=== PATIENT | female | born 1960 | race Caucasian/White ===

== ENCOUNTER 2020-06-30 12:48 | Observation (INO) ==
[2020-06-30 13:30] LABS: ABS Basophils 0.1 10^3/ul (0-0.2); ABS Eosinophils 0.3 10^3/ul (0-0.6); ABS Lymphocytes 2.1 10^3/ul (1.0-4.8); ABS Monocytes 0.8 10^3/ul (0-0.8); ABS Neutrophils 6.1 10^3/ul (1.5-7.7); Eosinophil % 2.7 %; Hematocrit 44 % (35-47); Hemoglobin 14.7 g/dL (12.0-16.0); Lymphocyte % 22.4 %; Mean Corpuscular HGB Conc 34 g/dL (31-36); Mean Corpuscular Hemoglobin 30 pg (27-31); Mean Corpuscular Volume 88 fL (80-97); Mean Platelet Volume 9.4 fL (7.4-10.4); Platelet Count 177 10^3/uL (150-450); Red Blood Count 4.98 10^6 /uL (3.70-4.87); Red Cell Distribution Width 16 % (10-15); White Blood Count 9.4 10^3/uL (3.5-10.8)
[2020-06-30 13:50] LABS: Anion Gap 7 mmol/L (2-11); BUN/Creatinine Ratio 22.9 (8-20); Blood Urea Nitrogen 19 mg/dL (6-24); CO2 Carbon Dioxide 26 mmol/L (22-32); Calcium 9.6 mg/dL (8.6-10.3); Chloride 108 mmol/L (101-111); EGFR African American 85.1 (>60); EGFR Non-African American 70.4 (>60); Glucose 80 mg/dL (70-100); Potassium 3.8 mmol/L (3.5-5.0); Sodium 141 mmol/L (135-145)
[2020-06-30 13:57] LABS: Troponin I 0.03 ng/mL (<0.03)
[2020-06-30] MEDS ORDERED: Heparin DRIP 25,000 UNITS BAG 25,000 UNITS/500 ML BAG IV SCH (14:30)
[2020-06-30 15:05] LABS: INR 0.94 (0.82-1.09)
[2020-06-30] MEDS ORDERED: Dextrose 50% Syringe 50 ml 25 GM/50 ML SYRINGE IV PUSH PRN (15:22)
[2020-06-30] MEDS: Heparin 5000 UNITS/ML 1 mL VIAL IV SCH ×2 (15:27→22:56)
[2020-06-30 18:29] LABS: ABS Basophils 0.1 10^3/ul (0-0.2); ABS Eosinophils 0.3 10^3/ul (0-0.6); ABS Lymphocytes 3.1 10^3/ul (1.0-4.8); ABS Monocytes 0.9 10^3/ul (0-0.8); ABS Neutrophils 6.6 10^3/ul (1.5-7.7); Eosinophil % 2.9 %; Hematocrit 47 % (35-47); Hemoglobin 15.7 g/dL (12.0-16.0); Mean Corpuscular HGB Conc 34 g/dL (31-36); Mean Corpuscular Hemoglobin 30 pg (27-31); Mean Corpuscular Volume 89 fL (80-97); Mean Platelet Volume 9.1 fL (7.4-10.4); Platelet Count 182 10^3/uL (150-450); Red Blood Count 5.25 10^6 /uL (3.70-4.87); Red Cell Distribution Width 16 % (10-15); White Blood Count 10.9 10^3/uL (3.5-10.8)
[2020-06-30 20:03] LABS: Troponin I 0.03 ng/mL (<0.03)
[2020-06-30 20:12] LABS: EGFR African American 87.6 (>60); EGFR Non-African American 72.4 (>60)
[2020-06-30] MEDS: Insulin GLARGINE 100 un/ml 10 ml VIAL SUBCUT SCH (22:43)
[2020-07-01 05:44] LABS: Troponin I 0.03 ng/mL (<0.03)
[2020-07-01 08:42] LABS: ABS Basophils 0.1 10^3/ul (0-0.2); ABS Eosinophils 0.3 10^3/ul (0-0.6); ABS Lymphocytes 2.9 10^3/ul (1.0-4.8); ABS Monocytes 0.8 10^3/ul (0-0.8); ABS Neutrophils 4.1 10^3/ul (1.5-7.7); Eosinophil % 4.1 %; Hematocrit 41 % (35-47); Hemoglobin 13.6 g/dL (12.0-16.0); Lymphocyte % 35.3 %; Mean Corpuscular HGB Conc 33 g/dL (31-36); Mean Corpuscular Hemoglobin 30 pg (27-31); Mean Corpuscular Volume 90 fL (80-97); Mean Platelet Volume 10.2 fL (7.4-10.4); Nucleated Red Blood Cells % 0.2; Platelet Count 157 10^3/uL (150-450); Red Blood Count 4.58 10^6 /uL (3.70-4.87); Red Cell Distribution Width 16 % (10-15); White Blood Count 8.3 10^3/uL (3.5-10.8)
[2020-07-01 08:54] LABS: ALT 11 U/L (7-52); AST 13 U/L (13-39); Albumin 3.5 g/dL (3.2-5.2); Albumin/Globulin Ratio 1.2 (1-3); Alkaline Phosphatase 80 U/L (34-104); Anion Gap 9 mmol/L (2-11); BUN/Creatinine Ratio 28.2 (8-20); Blood Urea Nitrogen 22 mg/dL (6-24); CO2 Carbon Dioxide 22 mmol/L (22-32); Chloride 107 mmol/L (101-111); EGFR African American 91.5 (>60); EGFR Non-African American 75.6 (>60); Globulin 2.9 g/dL (2-4); Glucose 210 mg/dL (70-100); Potassium 3.9 mmol/L (3.5-5.0); Sodium 138 mmol/L (135-145); Total Protein 6.4 g/dL (6.4-8.9)
[2020-07-01] MEDS ORDERED: Insulin GLARGINE 100 un/ml 10 ml VIAL SUBCUT SCH (09:00)
[2020-07-01] MEDS: Aspirin EC 81 mg TAB.EC (enteric coated) PO SCH (11:14)
[2020-07-01 11:21] LABS: Cholesterol 228 mg/dL; HDL Cholesterol 26.2 mg/dL; Triglycerides 762 mg/dL
[2020-07-01 11:37] LABS: LDL Cholesterol Direct 128 mg/dL
[2020-07-01] MEDS ORDERED: Heparin 5000 UNITS/ML 1 mL VIAL ONE (12:06)
[2020-07-01] MEDS: Heparin 5000 UNITS/ML 1 mL VIAL IV SCH (12:10)
[2020-07-01 12:14] LABS: Amylase 36 U/L (29-103); Lipase 118 U/L (11.0-82.0)
[2020-07-01] MEDS ORDERED: Perflutren Lipid Microsphere 3 ML VIAL ONE (12:28)
[2020-07-01 13:43] LABS: Magnesium 2.2 mg/dL (1.9-2.7)
[2020-07-01] MEDS ORDERED: Nitroglycerin 0.4 mg/hr PATCH (10 mg) TRANSDERM SCH (20:00)
[2020-07-01] MEDS: Insulin GLARGINE 100 un/ml 10 ml VIAL SUBCUT SCH (21:03)
[2020-07-01] MEDS: CMC: Ranolazine 500 mg TAB (NF) PO SCH (21:03)
[2020-07-02] MEDS: Heparin 5000 UNITS/ML 1 mL VIAL IV SCH ×2 (02:02→10:09)
[2020-07-02 06:52] LABS: Calcium 9.5 mg/dL (8.6-10.3); EGFR African American 92.8 (>60); EGFR Non-African American 76.7 (>60); Potassium 4.2 mmol/L (3.5-5.0)
[2020-07-02] MEDS ORDERED: Nitro Patch/OINT Remove PATCH PATCH OFF SCH (08:00)
[2020-07-02] MEDS: Aspirin EC 81 mg TAB.EC (enteric coated) PO SCH (08:25)
[2020-07-02] MEDS: CMC: Ranolazine 500 mg TAB (NF) PO SCH (08:28)
[2020-07-02] MEDS ORDERED: NS 0.9% 1000 ml BAG 1,000 ML IV SCH ×2 (10:00→12:15)
[2020-07-02] MEDS ORDERED: Heparin 1,000 UNIT/ML 10 ml (10,000 UNITS) CATHLAB/DIALYSIS ONE (10:41)
[2020-07-02] MEDS ORDERED: Lidocaine 1% VIAL 10 MG/ML VIAL ONE (10:41)
[2020-07-02] MEDS ORDERED: fentaNYL 100 mcg/2 ml 50 MCG/ML VIAL ONE (10:41)
[2020-07-02] MEDS ORDERED: Midazolam 5 mg/5 ml VIAL 1 mg/ml 5 ml VIAL (5 mg) ONE (10:41)
[2020-07-02] MEDS ORDERED: VERAPAMIL 2.5 MG/ML 2 ML VIAL ** 5 mg/2 ml ONE (10:41)
[2020-07-02] MEDS ORDERED: Iohexol 350 (CONTRAST) 200 ML MDV IV ONE (10:42)
[2020-07-02] MEDS ORDERED: nitroGLYCERIN DRIP 25,000 MCG/250 ML BTL ONE (10:42)
[2020-07-02] MEDS: Insulin GLARGINE 100 un/ml 10 ml VIAL SUBCUT SCH (20:05)
[2020-07-03 07:28] VITALS: BP 125/56
[2020-07-03] MEDS: Aspirin EC 81 mg TAB.EC (enteric coated) PO SCH (08:37)
== END 2020-07-03 12:15 | disposition home or self-care (01) ==
LOC: MEDTELE 12:48 → ED 12:48 → MEDTELE 07-01 23:08
PROVIDERS: ADMIT Hospitalist; ATTEND Internal Medicine